=== PATIENT | female | born 1995 | race Caucasian/White ===

== ENCOUNTER 2025-07-02 16:13 | Emergency (ER) | payer OTHER ==
[~2025-07-02] VITALS: Ht 172.7 cm; Wt 75.0 kg
[2025-07-02 16:33] VITALS: O2SAT 100
[2025-07-02] MEDS: HYDROCODONE/ACETAMINOPHEN 5/325MG TABLET PO ONE (22:33)
[2025-07-02] MEDS ORDERED: NAPR-681 PO (23:26)
[2025-07-02] MEDS ORDERED: CYCL5TAB3 PO (23:26)
[2025-07-02 23:33] VITALS: BP 144/100; PULSE 96; RESP 14; TEMP 36.4; O2SAT 100
== END 2025-07-02 23:36 | disposition home or self-care (01) ==
LOC: ER 16:13
DX: S50.02XA Contusion of left elbow, initial encounter (principal); S50.312A Abrasion of left elbow, initial encounter; M54.9 Dorsalgia, unspecified; M25.522 Pain in left elbow; I10 Essential (primary) hypertension; Y04.0XXA Assault by unarmed brawl or fight, initial encounter; Y93.89 Activity, other specified; Y92.89 Other specified places as the place of occurrence of the external cause; Y99.9 Unspecified external cause status
CPT/HCPCS: 72070; 72100; 73070; 81025; 99284